=== PATIENT | male | born 1945 | race Caucasian/White ===

== ENCOUNTER 2023-04-13 01:25 | Emergency (ER) | payer MEDICARE, OTHER ==
[~2023-04-13] VITALS: Ht 190.5 cm; Wt 109.8 kg
[2023-04-13] MEDS ORDERED: OMEP40CA5 PO (01:41)
[2023-04-13] MEDS ORDERED: ALLO300T2 (01:41)
[2023-04-13] MEDS ORDERED: RAMI1CAP26 PO (01:41)
[2023-04-13] MEDS ORDERED: ELIQ5TAB PO (01:41)
[2023-04-13] MEDS ORDERED: RA N1TAB PO (01:41)
[2023-04-13] MEDS ORDERED: AMLO25TA PO (01:41)
[2023-04-13] MEDS ORDERED: POTA-165 PO (01:41)
[2023-04-13] MEDS ORDERED: ALLO10TA PO (01:41)
[2023-04-13] MEDS ORDERED: ATOR1TAB19 PO (01:41)
[2023-04-13] MEDS ORDERED: COQ150CH PO (01:41)
[2023-04-13] MEDS ORDERED: ISOVUE-370 76% 100ML VIAL As Ordered ONE (02:41)
[2023-04-13 02:45] LABS: INR 1.24; PROTHROMBIN TIME 15.9 SECONDS (12.5-14.5)
[2023-04-13 02:46] LABS: PARTIAL THROMBOPLASTIN TIME 31.5 SECONDS (24.8-34.2)
[2023-04-13 02:47] LABS: BASO % 0.4 % (0.0-1.0); EOS # 0.2 10^3/uL (0.0-0.5); HEMATOCRIT 49.5 % (42.0-52.0); HEMOGLOBIN 16.5 g/dl (13.5-17.5); LYMPH # 1.6 10^3/uL (1.5-5.0); LYMPH % 23.3 % (24.0-44.0); MEAN CORPUSCULAR HGB CONC 33.3 g/dl (32.0-36.5); MEAN CORPUSCULAR VOLUME 92.9 fl (80.0-96.0); MONO # 0.7 10^3/uL (0.0-0.8); MONO % 10.5 % (2.0-8.0); NEUTROPHILS # 4.4 10^3/uL (1.5-8.5); NEUTROPHILS % 62.2 % (36.0-66.0); PLATELET COUNT, AUTOMATED 159 10^3/uL (150-450); RED BLOOD COUNT 5.33 10^6/uL (4.30-6.10)
[2023-04-13 02:53] LABS: LIPASE 76 U/L (12-53)
[2023-04-13 02:54] LABS: ALBUMIN 3.8 G/DL (3.2-5.2); ALKALINE PHOSPHATASE 98 U/L (46-116); ALT/SGPT 21 U/L (7.0-40); AST/SGOT 11 U/L (<34); BILIRUBIN,DIRECT 0.3 MG/DL (<0.4); BILIRUBIN,TOTAL 0.8 MG/DL (0.3-1.2); BLOOD UREA NITROGEN 29 MG/DL (9-23); CALCIUM LEVEL 9.3 MG/DL (8.3-10.6); CARBON DIOXIDE LEVEL 24 MMOL/L (20-31); CHLORIDE LEVEL 108 MMOL/L (98-107); CK-MB VALUE MASS < 1.0 NG/ML (<3.6); CPK CREATINE PHOSPHOKINASE 59 U/L (46-171); CREATININE FOR GFR 1.19 MG/DL (0.70-1.30); GLOMERULAR FILTRATION RATE > 60.0 (>42); GLUCOSE, FASTING 96 MG/DL (74-106); MB/CK RELATIVE INDEX 1.69 (< OR =4); POTASSIUM SERUM 4.1 MMOL/L (3.5-5.1); SODIUM LEVEL 140 MMOL/L (136-145); TOTAL PROTEIN 7.1 G/DL (5.7-8.2)
[2023-04-13 04:53] LABS: CK-MB VALUE MASS 1.1 NG/ML (<3.6); MB/CK RELATIVE INDEX 2.07 (< OR =4)
[2023-04-13 06:12] VITALS: BP 144/80; TEMP 97.4; O2SAT 98
== END 2023-04-13 06:16 | disposition home or self-care (01) ==
LOC: M ED 01:25
DX: R10.9 Unspecified abdominal pain (principal); I48.91 Unspecified atrial fibrillation; Z86.79 Personal history of other diseases of the circulatory system; Z88.8 Allergy status to other drugs, medicaments and biological substances; Z79.02 Long term (current) use of antithrombotics/antiplatelets; Z79.01 Long term (current) use of anticoagulants; Z79.899 Other long term (current) drug therapy
CPT/HCPCS: 36415; 70450; 71275; 74174; 80048; 80076; 82550; 82553; 83605; 83690; 84484; 85025; 85610; 85730; 93005; 93041; 99284; Q9967

== ENCOUNTER → 2024-03-09 | Outpatient (CLI) | payer MEDICARE, OTHER ==
[~2024-03-09] MED LIST: ALLO10TA PO; ALLO300T2; AMLO25TA PO; ATOR1TAB19 PO; COQ150CH PO; ELIQ5TAB PO; OMEP40CA5 PO; POTA-165 PO; RA N1TAB PO; RAMI10CA64 PO
== END ==
LOC: M PLAIMG 14:20
PROVIDERS: ATTEND Physician Assistant
DX: I35.2 Nonrheumatic aortic (valve) stenosis with insufficiency (principal); I34.0 Nonrheumatic mitral (valve) insufficiency; I77.810 Thoracic aortic ectasia